=== PATIENT | male | born 1945 | race Hispanic/Latino ===

== ENCOUNTER 2022-10-12 11:00 | Outpatient (CLI) | payer MEDICARE, MEDICAID | END 2022-10-12 11:01 | disposition home or self-care (01) | LOC: SCSRAD 11:00 | PROVIDERS: ATTEND Physician Assistant | DX: M25.551 Pain in right hip (principal); M47.816 Spondylosis without myelopathy or radiculopathy, lumbar region | CPT/HCPCS: 72100 ==

== ENCOUNTER 2023-02-13 13:48 | Outpatient (CLI) | payer OTHER, MEDICAID ==
[2023-02-13 15:12] LABS: Bilirubin Neg (Negative); Blood, Urine Negative (Negative); Clarity Clear (Clear); Glucose, Urine (Dipstick) Normal (Negative); Ketone, Urine Negative (Negative); Leukocyte Negative (Negative); Nitrite Negative (Negative); Protein, Urine (Dipstick) Negative (Neg-Trace); Urobilinogen Normal mg/dL (Less than 2)
[2023-02-13 15:16] LABS: Hemoglobin 13.2 g/dL (13.5-17.5); Mean Corpuscular HGB CONC 33.4 g/dL (32.0-36.0); Mean Corpuscular Hemoglobin 31.7 pg (27.0-33.0); Mean Platelet Volume 9.9 fl (7.4-10.4); Platelet Count 203 10x3/uL (150-450); RBC Distribution Width 12.1 % (11.5-14.5); Red Blood Cell (RBC) Count 4.16 10x6/uL (4.32-5.72)
[2023-02-13 15:21] LABS: Bacteria/HPF None Seen HPF (None Seen); RBC/HPF None Seen HPF (0-3); Squamous Epithelial None Seen HPF (0-3); WBC/HPF 0-3 HPF (0-3)
[2023-02-13 15:23] LABS: INR-International Normal Ratio 0.9; PTT 27.2 sec (22.0-33.0)
[2023-02-13 15:25] LABS: Anion Gap 17 mmol/L (10-20); BUN (Urea Nitrogen) 14 mg/dL (8.4-25.7); Calc. Creatinine Clearance 0 mL/min (70-130); Calcium 9.5 mg/dL (7.8-10.44); Carbon Dioxide 22 mmol/L (23-31); Chloride 105 mmol/L (98-107); Estimated GFR 75; Glucose 104 mg/dL (83-110); Sodium 140 mmol/L (136-145)
== END 2023-02-13 13:49 | disposition home or self-care (01) ==
LOC: LABBT 13:48
PROVIDERS: ATTEND Urology
DX: Z01.818 Encounter for other preprocedural examination (principal); M48.062 Spinal stenosis, lumbar region with neurogenic claudication; N40.1 Benign prostatic hyperplasia with lower urinary tract symptoms; R97.20 Elevated prostate specific antigen [PSA]; R33.8 Other retention of urine
CPT/HCPCS: 71046; 80048; 81001; 85027; 85610; 85730; 87086; 93005; 93010

== ENCOUNTER 2023-02-27 06:14 | Day surgery (SDC) | payer OTHER, MEDICAID ==
[2023-02-13 14:31] VITALS: BMI 21.9
[2023-02-27] MEDS ORDERED: LevoFLOXacin 500 mg/D5W 100 ML BAG ONE (06:49)
[2023-02-27] MEDS ORDERED: Propofol 1,000 MG/100 ML VIAL IV ONE (07:23)
[2023-02-27] MEDS ORDERED: cefTRIAXone (ROCEPHIN) 2 GM VIAL ONE (07:32)
[2023-02-27] MEDS ORDERED: Sodium Chloride 0.9% 100 ML ONE (07:32)
== END 2023-02-27 10:40 | disposition home or self-care (01) ==
LOC: SDC 06:14
PROVIDERS: ATTEND Urology
PROC: 0VB03ZX Excision of Prostate, Percutaneous Approach, Diagnostic (ICD-10-PCS; principal; 2023-02-27)
DX: C61 Malignant neoplasm of prostate (principal); N40.1 Benign prostatic hyperplasia with lower urinary tract symptoms; R33.9 Retention of urine, unspecified; R97.20 Elevated prostate specific antigen [PSA]; I20.9 Angina pectoris, unspecified; I25.10 Atherosclerotic heart disease of native coronary artery without angina pectoris; M48.062 Spinal stenosis, lumbar region with neurogenic claudication; Z79.899 Other long term (current) drug therapy
CPT/HCPCS: G0416; J0696; J1956; J2704; J3490

== ENCOUNTER 2023-03-12 08:28 | Outpatient (CLI) | payer OTHER, MEDICAID ==
[2023-03-12 10:27] LABS: Carbon Dioxide 25 mmol/L (23-31); Chloride 105 mmol/L (98-107); Potassium 3.8 mmol/L (3.5-5.1); Sodium 140 mmol/L (136-145)
[2023-03-12 10:28] LABS: Anion Gap 14 mmol/L (10-20); BUN (Urea Nitrogen) 16 mg/dL (8.4-25.7)
[2023-03-12 10:29] LABS: Calc. Creatinine Clearance 0 mL/min (70-130); Estimated GFR 89; Glucose 102 mg/dL (83-110)
[2023-03-12 10:39] LABS: INR-International Normal Ratio 0.9; PTT 27.7 sec (22.0-33.0)
[2023-03-12 11:49] LABS: Hemoglobin 13.8 g/dL (13.5-17.5); Red Blood Cell (RBC) Count 4.25 10x6/uL (4.32-5.72); White Blood Cell (WBC) Count 6.3 10x3/uL (3.5-10.5)
[2023-03-12 11:50] LABS: Hematocrit 39.8 % (38.8-50.0); Mean Corpuscular HGB CONC 34.7 g/dL (32.0-36.0); Mean Corpuscular Hemoglobin 32.5 pg (27.0-33.0); Mean Corpuscular Volume 93.6 fl (81.2-95.1); Mean Platelet Volume 10.2 fl (7.4-10.4); Platelet Count 206 10x3/uL (130-400); RBC Distribution Width 12.1 % (11.5-14.5)
== END 2023-03-12 08:29 | disposition home or self-care (01) ==
LOC: LABBT 08:28
PROVIDERS: ATTEND Surgery
DX: Z01.818 Encounter for other preprocedural examination (principal); M51.16 Intervertebral disc disorders with radiculopathy, lumbar region; M48.062 Spinal stenosis, lumbar region with neurogenic claudication
CPT/HCPCS: 80048; 85027; 85610; 85730; 93005; 93010

== ENCOUNTER 2023-03-13 07:25 | Outpatient (CLI) | payer OTHER, MEDICAID | END 2023-03-13 07:26 | disposition home or self-care (01) | LOC: NM 07:25 | PROVIDERS: ATTEND Urology | DX: C61 Malignant neoplasm of prostate (principal) | CPT/HCPCS: 74178; 78306; A9503 ==

== ENCOUNTER 2023-03-15 06:14 | Observation (INO) | payer OTHER, MEDICAID ==
[2023-03-12 09:09] VITALS: BMI 20.7
[2023-03-15] MEDS ORDERED: Fentanyl 250 MCG/5 ML VIAL ONE (06:43)
[2023-03-15] MEDS ORDERED: Vancomycin 1 GM VIAL ONE (06:59)
[2023-03-15] MEDS ORDERED: Thrombin 5000 UNITS/5 ML VIAL ONE (06:59)
[2023-03-15] MEDS ORDERED: CEFAZOLIN 2 GM VIAL ONE (07:18)
[2023-03-15] MEDS ORDERED: Sodium Chloride 0.9% 100 ML ONE (07:18)
[2023-03-15] MEDS ORDERED: Phenylephrine 10 MG/ML VIAL ONE (07:25)
[2023-03-15] MEDS ORDERED: Rocuronium Bromide 10 MG/ML (10ML VIAL) ONE (07:33)
[2023-03-15] MEDS ORDERED: NEOSTIGMINE 3 MG/3 ML SYR 3 MG/3 ML SYRINGE ONE (07:33)
[2023-03-15] MEDS ORDERED: Ondansetron PF 4 MG/2 ML Vial ONE (07:33)
[2023-03-15] MEDS ORDERED: Lidocaine 1% PF 5 ML VIAL ONE (07:33)
[2023-03-15] MEDS ORDERED: Glycopyrrolate 0.2 MG/ML 5 ML SYRINGE ONE (07:33)
[2023-03-15] MEDS ORDERED: ePHEDrine Sulfate 50 MG/10 ML VIAL ONE (07:33)
[2023-03-15] MEDS ORDERED: PROPOFOL 200 MG/20 ML VIAL ONE (07:33)
[2023-03-15] MEDS ORDERED: Dexamethasone 20 MG/5 ML VIAL ONE (07:33)
[2023-03-15] MEDS ORDERED: PHENYLEPHRINE-NS 100 MCG/ML 10 ML SYRINGE ONE (07:33)
[2023-03-15] MEDS ORDERED: MINERAL OIL/WHITE PETROLATUM 3.5 GM TUBE ONE (07:39)
[2023-03-15] MEDS ORDERED: traMADol HCl 50 MG TAB PO PRN (09:25)
[2023-03-15] MEDS ORDERED: Acetaminophen/Codeine 30-300mg Tablet PO PRN (09:25)
[2023-03-15] MEDS ORDERED: Morphine 2 MG/ML VIAL SLOW IVP PRN (09:25)
[2023-03-15] MEDS ORDERED: diphenhydrAMINE 25 MG CAP PO PRN (09:25)
[2023-03-15] MEDS ORDERED: Ondansetron PF 4 MG/2 ML Vial IVP PRN (09:25)
[2023-03-15] MEDS ORDERED: Acetaminophen 325 MG TAB PO PRN (09:25)
[2023-03-15] MEDS ORDERED: tiZANidine HCl 4 MG TAB PO PRN (09:27)
[2023-03-15] MEDS ORDERED: hydrALAZINE 20 MG/ML VIAL SLOW IVP PRN (09:27)
[2023-03-15] MEDS ORDERED: Ondansetron HCl/PF 4 MG/2 ML Vial IVP PRN (09:46)
[2023-03-15] MEDS ORDERED: Promethazine HCl 25 MG/ML VIAL IM PRN (09:46)
[2023-03-15] MEDS ORDERED: PACU-Morphine 4MG/ML VIAL SLOW IVP PRN (09:46)
[2023-03-15] MEDS ORDERED: Meperidine HCl/PF 25 MG/ML VIAL SLOW IVP PRN (09:46)
[2023-03-15] MEDS ORDERED: fentaNYL 50 mcg/mL 1 mL Vial ONE ×2 (10:21→10:46)
[2023-03-15] MEDS ORDERED: Morphine 4 MG/ML VIAL ONE (11:48)
[2023-03-15] MEDS: Sodium Chloride 0.9% 1,000 ML IV SCH (12:50)
[2023-03-15] MEDS: HYDROcodone/Acetaminophen 7.5/325 mg Tablet PO PRN ×2 (14:15→21:09)
[2023-03-15] MEDS: CEFAZOLIN 2 GM in Sodium Chloride 0.9% 100 ML IVPB SCH ×2 (14:16→21:07)
[2023-03-15] MEDS ORDERED: Tamsulosin HCl 0.4 MG CAP PO SCH (21:00)
[2023-03-15] MEDS: Pregabalin 75 MG CAP PO SCH (21:06)
[2023-03-15] MEDS: Tamsulosin HCl 0.4 MG CAP PO SCH (21:06)
[2023-03-16] MEDS: Sodium Chloride 0.9% 1,000 ML IV SCH (02:37)
[2023-03-16 08:07] VITALS: BP 112/66; TEMP 98
[2023-03-16] MEDS: Pregabalin 75 MG CAP PO SCH (08:32)
[2023-03-16] MEDS: Tamsulosin HCl 0.4 MG CAP PO SCH (08:32)
[2023-03-16] MEDS: HYDROcodone/Acetaminophen 7.5/325 mg Tablet PO PRN (08:33)
[2023-03-16] MEDS ORDERED: Hydrochlorothiazide 25 MG TAB PO SCH (09:00)
== END 2023-03-16 12:04 | disposition home or self-care (01) ==
LOC: SDC 06:14 → SURG A 12:43
PROVIDERS: ADMIT Surgery; ATTEND Surgery
PROC: 01NB0ZZ Release Lumbar Nerve, Open Approach (ICD-10-PCS; principal; 2023-03-15)
PROC: 01NB0ZZ Release Lumbar Nerve, Open Approach (ICD-10-PCS; 2023-03-15)
DX: M48.062 Spinal stenosis, lumbar region with neurogenic claudication (principal); M51.16 Intervertebral disc disorders with radiculopathy, lumbar region; Z79.899 Other long term (current) drug therapy
CPT/HCPCS: 63030; 63047; C1889; J3010; J1100; J2270; J2370; J2405; J2704; J3370; J3490; J7050

== ENCOUNTER 2023-04-22 10:57 | Inpatient (IN) | payer OTHER, MEDICAID ==
[2023-04-22] MEDS ORDERED: traMADol HCl 50 MG TAB PO PRN (13:12)
[2023-04-22] MEDS ORDERED: diphenhydrAMINE 25 MG CAP PO PRN (13:12)
[2023-04-22] MEDS ORDERED: Acetaminophen/Codeine 30-300mg Tablet PO PRN (13:12)
[2023-04-22] MEDS ORDERED: Morphine 2 MG/ML VIAL SLOW IVP PRN (13:12)
[2023-04-22] MEDS ORDERED: Ondansetron PF 4 MG/2 ML Vial IVP PRN (13:12)
[2023-04-22] MEDS ORDERED: Acetaminophen 325 MG TAB PO PRN (13:12)
[2023-04-22] MEDS ORDERED: metroNIDAZOLE 500 MG in Premix Bag 1 BAG IVPB SCH (13:30)
[2023-04-22 14:25] LABS: #Eosinphils 0.1 thou/uL (0.0-0.7); #Neutrophils 8.5 thou/uL (1.40-6.50); %Basophils 0.4 % (0.0-1.0); %Lymphocytes 11.2 % (21.0-51.0); %Monocytes 8.8 % (0.0-10.0); %Neutrophils 77.7 % (42.0-75.0); Hematocrit 37.4 % (42.0-52.0); Hemoglobin 12.6 g/dL (14.0-18.0); Mean Corpuscular HGB CONC 33.7 g/dL (32.0-36.0); Mean Corpuscular Hemoglobin 32.4 pg (27.0-31.0); Mean Corpuscular Volume 96.1 fl (78.0-98.0); Mean Platelet Volume 8.7 fL (7.4-10.4); Platelet Count 396 10x3/uL (130-400); RBC Distribution Width 11.8 % (11.5-14.5); Red Blood Cell (RBC) Count 3.89 mill/uL (4.70-6.10); White Blood Cell (WBC) Count 10.9 10x3/uL (4.8-10.8)
[2023-04-22 14:43] LABS: ALT (SGPT) 51 U/L (8-55); AST (SGOT) 39 U/L (5-34); Albumin 4.4 g/dL (3.4-4.8); Alkaline Phosphatase 103 U/L (40-110); Anion Gap 15 mmol/L (10-20); BUN (Urea Nitrogen) 14 mg/dL (8.4-25.7); Bilirubin, Total 0.4 mg/dL (0.2-1.2); CRP (Inflammatory) 3.13 mg/dL (= or < 0.5); Calc. Creatinine Clearance 0 mL/min (70-130); Calcium 10.2 mg/dL (7.8-10.44); Carbon Dioxide 26 mmol/L (23-31); Chloride 97 mmol/L (98-107); Estimated GFR 56; Globulin 3.6 g/dL (2.4-3.5); Glucose 124 mg/dL (83-110); Potassium 4.3 mmol/L (3.5-5.1); Sodium 134 mmol/L (136-145)
[2023-04-22 14:45] VITALS: BMI 21.7
[2023-04-22] MEDS ORDERED: Cefepime 2 GM in Sodium Chloride 0.9% 100 ML IVPB SCH (15:15)
[2023-04-22] MEDS ORDERED: Vancomycin 1.5 GRAM/300 ML BAG 1.5 GM in Premix Bag 1 BAG IVPB SCH (16:00)
[2023-04-22] MEDS: Pregabalin 75 MG CAP PO SCH (22:42)
[2023-04-22] MEDS: metroNIDAZOLE 500 MG in Premix Bag 1 BAG IVPB SCH (22:43)
[2023-04-22] MEDS: Tamsulosin HCl 0.4 MG CAP PO SCH (22:43)
[2023-04-23] MEDS: Cefepime 2 GM in Sodium Chloride 0.9% 100 ML IVPB SCH ×2 (03:38→14:11)
[2023-04-23] MEDS: metroNIDAZOLE 500 MG in Premix Bag 1 BAG IVPB SCH ×2 (05:16→13:12)
[2023-04-23 06:23] LABS: #Basophils 0.1 thou/uL (0.0-0.2); #Eosinphils 0.4 thou/uL (0.0-0.7); #Monocytes 1.1 thou/uL (0.11-0.59); #Neutrophils 5.8 thou/uL (1.40-6.50); %Basophils 0.5 % (0.0-1.0); %Eosinophils 3.9 % (0.0-10.0); %Lymphocytes 21.6 % (21.0-51.0); %Monocytes 11.7 % (0.0-10.0); %Neutrophils 61.6 % (42.0-75.0); Hematocrit 34.3 % (42.0-52.0); Hemoglobin 11.8 g/dL (14.0-18.0); Mean Corpuscular HGB CONC 34.4 g/dL (32.0-36.0); Mean Corpuscular Hemoglobin 32.7 pg (27.0-31.0); Mean Platelet Volume 8.5 fL (7.4-10.4); Platelet Count 353 10x3/uL (130-400); RBC Distribution Width 11.8 % (11.5-14.5); Red Blood Cell (RBC) Count 3.61 mill/uL (4.70-6.10); White Blood Cell (WBC) Count 9.4 10x3/uL (4.8-10.8)
[2023-04-23] MEDS: Pregabalin 75 MG CAP PO SCH ×2 (08:09→21:49)
[2023-04-23] MEDS: Tamsulosin HCl 0.4 MG CAP PO SCH ×2 (08:09→21:49)
[2023-04-23] MEDS: Hydrochlorothiazide 25 MG TAB PO SCH (08:10)
[2023-04-23] MEDS ORDERED: VANCOMYCIN 1.25 GM/250 ML BAG 1.25 GM in Premix Bag 1 BAG IVPB SCH (16:00)
[2023-04-23] MEDS ORDERED: Nafcillin 2 GM in Sodium Chloride 0.9% 100 ML IVPB SCH (21:00)
[2023-04-23] MEDS: Oxacillin 2 GM in Sodium Chloride 0.9% 100 ML IVPB SCH (21:50)
[2023-04-24] MEDS: Oxacillin 2 GM in Sodium Chloride 0.9% 100 ML IVPB SCH ×4 (04:09→20:50)
[2023-04-24 05:34] LABS: #Eosinphils 0.4 thou/uL (0.0-0.7); #Monocytes 0.9 thou/uL (0.11-0.59); %Basophils 0.6 % (0.0-1.0); %Lymphocytes 15.3 % (21.0-51.0); %Monocytes 14.3 % (0.0-10.0); %Neutrophils 63.5 % (42.0-75.0); Hematocrit 31.5 % (42.0-52.0); Hemoglobin 10.9 g/dL (14.0-18.0); Mean Corpuscular HGB CONC 34.6 g/dL (32.0-36.0); Mean Corpuscular Hemoglobin 32.9 pg (27.0-31.0); Mean Corpuscular Volume 95.2 fl (78.0-98.0); Mean Platelet Volume 8.6 fL (7.4-10.4); Platelet Count 323 10x3/uL (130-400); RBC Distribution Width 11.8 % (11.5-14.5); Red Blood Cell (RBC) Count 3.31 mill/uL (4.70-6.10); White Blood Cell (WBC) Count 6.4 10x3/uL (4.8-10.8)
[2023-04-24] MEDS: Pregabalin 75 MG CAP PO SCH ×2 (08:02→20:50)
[2023-04-24] MEDS: Tamsulosin HCl 0.4 MG CAP PO SCH ×2 (08:02→20:50)
[2023-04-24] MEDS: Hydrochlorothiazide 25 MG TAB PO SCH (08:02)
[2023-04-24 15:26] LABS: Vancomycin, Trough 7.2 ug/mL
[2023-04-24 18:25] LABS: Bacteria/HPF None Seen HPF (None Seen); Bilirubin Negative (Negative); Blood, Urine Negative (Negative); Clarity Clear (Clear); Glucose, Urine (Dipstick) Normal (Negative); Ketone, Urine Negative (Negative); Leukocyte Negative Leu/uL (Negative); Nitrite Negative (Negative); Protein, Urine (Dipstick) Negative (Neg-Trace); RBC/HPF 0-3 HPF (0-3); Specific Gravity, Urine 1.007 (1.002-1.036); Squamous Epithelial None Seen HPF (0-3); Urobilinogen Normal mg/dL (Less than 2); WBC/HPF 0-3 HPF (0-3); pH, Urine 6.5 (5.0-9.0)
[2023-04-25] MEDS: Oxacillin 2 GM in Sodium Chloride 0.9% 100 ML IVPB SCH ×3 (03:28→16:56)
[2023-04-25 06:32] LABS: Anion Gap 12 mmol/L (10-20); BUN (Urea Nitrogen) 14 mg/dL (8.4-25.7); Calc. Creatinine Clearance 54 mL/min (70-130); Calcium 9.6 mg/dL (7.8-10.44); Carbon Dioxide 28 mmol/L (23-31); Chloride 101 mmol/L (98-107); Estimated GFR 71; Glucose 111 mg/dL (83-110); Potassium 3.9 mmol/L (3.5-5.1); Sodium 137 mmol/L (136-145)
[2023-04-25] MEDS: Pregabalin 75 MG CAP PO SCH ×2 (09:36→19:38)
[2023-04-25] MEDS: Hydrochlorothiazide 25 MG TAB PO SCH (09:37)
[2023-04-25] MEDS: Tamsulosin HCl 0.4 MG CAP PO SCH ×2 (09:37→19:38)
[2023-04-25] MEDS ORDERED: Nafcillin 2 GM in Sodium Chloride 0.9% 100 ML IVPB SCH (19:00)
[2023-04-26] MEDS: Oxacillin 2 GM in Sodium Chloride 0.9% 100 ML IVPB SCH ×2 (04:16→10:28)
[2023-04-26] MEDS: Hydrochlorothiazide 25 MG TAB PO SCH (10:27)
[2023-04-26] MEDS: Pregabalin 75 MG CAP PO SCH (10:27)
[2023-04-26] MEDS: Tamsulosin HCl 0.4 MG CAP PO SCH (10:27)
[2023-04-26 10:57] VITALS: BP 154/79; TEMP 98.3
== END 2023-04-26 14:02 | disposition home or self-care (01) | DRG 863 ==
LOC: SURG A 12:10
PROVIDERS: ADMIT Surgery; ATTEND Surgery
PROC: 02HV33Z Insertion of Infusion Device into Superior Vena Cava, Percutaneous Approach (ICD-10-PCS; principal; 2023-04-25)
PROC: B5181ZA Fluoroscopy of Superior Vena Cava using Low Osmolar Contrast, Guidance (ICD-10-PCS; 2023-04-25)
PROC: B548ZZA Ultrasonography of Superior Vena Cava, Guidance (ICD-10-PCS; 2023-04-25)
DX: T81.49XA Infection following a procedure, other surgical site, initial encounter (principal); B95.61 Methicillin susceptible Staphylococcus aureus infection as the cause of diseases classified elsewhere; I25.10 Atherosclerotic heart disease of native coronary artery without angina pectoris; N40.0 Benign prostatic hyperplasia without lower urinary tract symptoms; C61 Malignant neoplasm of prostate; Z79.899 Other long term (current) drug therapy; Z98.890 Other specified postprocedural states
CPT/HCPCS: 36415; 36569; 80048; 80053; 80202; 81001; 85025; 86140; 87040; 87086; C1751; J0692; J2700; J3370; J3490; S0032